=== PATIENT | female | born 1985 | race Caucasian/White ===

== ENCOUNTER 2017-04-20 16:32 | Emergency (ER) | payer OTHER ==
[2017-04-20 16:50] VITALS: BP 100/46; PULSE 65; TEMP 98.3; BMI 22.9
--- NOTE | 2017-04-20 16:50 | PDOC ---
Rapid Medical Evaluation Time Seen by Provider: 04/20/17 16:44 Medical Evaluation: Allergies Allergy/AdvReac Type Severity Reaction Status Date / Time No Known Allergies Allergy Verified 12/10/12 03:59 04/20/17 16:44 I have performed a brief in-person evaluation of this patient. The patient presents with a chief complaint of: Painful rash to lateral R chest s/p insect bite 4 days, no f/c Pertinent physical exam findings:Stable w/ 11 x 6cm erythematous, blanchable plaque that is warm and very painful to touch w/ central pinpoint scabs located over lateral aspect of R chest concerning for possible cellulitis I have ordered the following:cbc/chem The patient will proceed to the ED for further evaluation.
[2017-04-20 17:23] LABS: BASO % 0.4 % (0-2.0); EOS # 0.1 #; EOS % 0.9 % (0-4.5); LYMPH # 1.9; MCH 31.7 pg (25.7-33.7); MCHC 34.2 g/dl (32.0-36.0); MEAN CELL VOLUME 92.9 fl (80-96); MEAN PLT VOLUME 8.7 fl (7.5-11.1); MONO # 0.6 #; NEUT # 3.8 #; PLATELET COUNT 249 K/MM3 (134-434); RDW 12.9 % (11.6-15.6); WHITE BLOOD COUNT 6.4 K/mm3 (4.0-10.0)
[2017-04-20] MEDS ORDERED: ACETAMINOPHEN 500 MG TABLET (FP) ONE (17:33)
[2017-04-20] MEDS ORDERED: diphenhydrAMINE HCL 25 MG CAPSULE (FP) PO ONE ×2 (17:37→17:52)
[2017-04-20] MEDS ORDERED: CEPHALEXIN MONOHYDRATE 500 MG CAPSULE (UD) PO ONE (17:39)
[2017-04-20] MEDS ORDERED: SULFAMETHOXAZOLE/TRIMETHOPRIM 800MG/160MG D.S. TABLET PO ONE (17:39)
[2017-04-20] MEDS ORDERED: SULFAMETHOXAZOLE/TRIMETHOPRIM 800MG/160MG D.S. TABLET ONE (17:52)
[2017-04-20] MEDS ORDERED: CEPHALEXIN MONOHYDRATE 500 MG CAPSULE (UD) ONE (17:52)
[2017-04-20 17:53] LABS: ALBUMIN 4.1 g/dl (3.4-5.0); ANION GAP 6 (8-16); BILIRUBIN,TOTAL 0.3 mg/dL (0.2-1.0); CALCIUM 8.7 mg/dL (8.5-10.1); CO2 27 mmol/L (21-32); CREATININE 0.6 mg/dL (0.55-1.02); GLUCOSE,RANDOM 86 mg/dL (74-106); SGOT/AST 23 U/L (15-37); SGPT/ALT 30 U/L (12-78); TOT PROT 7.9 g/dl (6.4-8.2)
[2017-04-20 17:54] LABS: ALK PHOS 61 U/L (45-117)
--- NOTE | 2017-04-20 18:01 | PDOC ---
History of Present Illness - General Chief Complaint: Bite Stated Complaint: BITE WOUND Time Seen by Provider: 04/20/17 16:44 History Source: Patient Exam Limitations: Language Barrier - History of Present Illness Initial Comments: 04/20/17 17:44 32 yr female with bite to right flank area states "insect" bite 5 days ago now red, itchy and swollen. no fever no chills. no vomiting or diarrhea, denies burning sensation. 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 04/20/17 18:01 Severity: Yes: mild Past History - Past Medical History Allergies/Adverse Reactions: Allergies Allergy/AdvReac Type Severity Reaction Status Date / Time No Known Allergies Allergy Verified 04/20/17 16:44 Home Medications: Ambulatory Orders Cephalexin [Keflex] 250 mg PO QID #28 capsule 04/20/17 Sulfamethoxazole/Trimethoprim [Bactrim Ds Tablet] 1 each PO BID #14 tablet 04/20 Asthma: No Cancer: No Cardiac Disorders: No COPD: No DVT: No Dementia: No Diabetes: No HTN: No Seizures: No Thyroid Disease: No - Immunization History Immunization Up to Date: Yes - Suicide/Smoking/Psychosocial Hx Smoking History: Never smoked Have you smoked in the past 12 months: No Information on smoking cessation initiated: No Hx Alcohol Use: No Drug/Substance Use Hx: No Substance Use Type: None Hx Substance Use Treatment: No *Physical Exam - Vital Signs Last Vital Signs Temp Pulse Resp BP Pulse Ox 98.3 F 65 16 100/46 99 04/20/17 16:45 04/20/17 16:45 04/20/17 16:45 04/20/17 16:45 04/20/17 16:45 - Physical Exam General Appearance: Yes: Nourished, Appropriately Dressed HEENT: positive: EOMI, SARTHAK Neck: positive: Supple Respiratory/Chest: positive: Lungs Clear, Normal Breath Sounds Cardiovascular: positive: Regular Rhythm, Regular Rate Gastrointestinal/Abdominal: positive: Normal Bowel Sounds, Soft Lymphatic: negative: Adenopathy Musculoskeletal: positive: Normal Inspection Extremity: positive: Normal Capillary Refill, Normal Inspection, Normal Range of Motion Integumentary: positive: Normal Color, Dry, Warm, Other (right flank with erythematous area with multiple pustules, scabbed , no fluctuance, no drainage, hardened area ) Neurologic: positive: online marketing coordinator II-XII NML intact, Motor Strength 5/5 ED Treatment Course - LABORATORY CBC & Chemistry Diagram: 04/20/17 16:56 04/20/17 16:56 - ADDITIONAL ORDERS Additional order review: Laboratory Results 04/20/17 16:56 Urine HCG, Qual Negative Medical Decision Making - Medical Decision Making 04/20/17 18:04 painful itchy rash for 5-6 days started small now large and red and inflamed with multiple small bite like pustules will place on oral antibitoics, benadryl for the itching strict 48hr follow up in ER pt understands via the [employer] hatchery helper all dc inst discussed *DC/Admit/Observation/Transfer Diagnosis at time of Disposition: Insect bite Qualifiers: Encounter type: initial encounter Qualified Code(s): W57.XXXA - Bitten or stung by nonvenomous insect and other nonvenomous arthropods, initial encounter Cellulitis Qualifiers: Site of cellulitis: trunk Site of cellulitis of trunk: abdominal wall Qualified Code(s): L03.311 - Cellulitis of abdominal wall - Discharge Dispostion Disposition: HOME Condition at time of disposition: Good - Prescriptions Prescriptions: Cephalexin [Keflex] 250 mg PO QID #28 capsule Sulfamethoxazole/Trimethoprim [Bactrim Ds Tablet] 1 each PO BID #14 tablet - Referrals - Patient Instructions Additional Instructions: return on Tuesday for wound check between 8am and 8pm warm moist compresses every 4hrs for 15 minutes to area of pain while awake for 2 days take the antibitoics as directed also take benadryl for itching and ibuprofen or tylenol for pain regresar el viernes para el control de heridas entre las 8am y las 8pm compresas tibias y hmedas cada 4 horas julián 15 minutos en el larry del dolor mientras est despierto julián 2 alfaro melba los antibiticos belle se indica tambin tome benadryl para picazn e ibuprofeno o tylenol para el dolor - Post Discharge Activity
== END 2017-04-20 18:35 | disposition home or self-care (01) ==
LOC: JERFT 16:32
DX: S30.861A Insect bite (nonvenomous) of abdominal wall, initial encounter (principal); L03.311 Cellulitis of abdominal wall; W57.XXXA Bitten or stung by nonvenomous insect and other nonvenomous arthropods, initial encounter; Y93.89 Activity, other specified; Y92.89 Other specified places as the place of occurrence of the external cause; Y99.8 Other external cause status
CPT/HCPCS: 36415; 80053; 84703; 85025; 99281-25

== ENCOUNTER 2017-04-22 12:51 | Emergency (ER) | payer OTHER ==
[2017-04-22 13:43] VITALS: BP 109/57; PULSE 60; TEMP 98.3; BMI 24.7
--- NOTE | 2017-04-22 14:02 | PDOC ---
History of Present Illness - General Chief Complaint: Rash Stated Complaint: FLANK AND BREAST RASH Time Seen by Provider: 04/22/17 13:48 History Source: Patient Exam Limitations: No Limitations - History of Present Illness Initial Comments: 04/22/17 13:57 32 yr female with c/o painful area to right side flank here for followup. Pt seen in ER 2 days ago treated fro possible insect bite with cellulitus returns with no improvement feels more pain no fever no chills no vomiting. Pt also with small area of redness to right side abdomen. Timing/Duration: reports: getting worse Severity: Yes: mild Location: reports: torso (right side torso) Past History - Past Medical History Allergies/Adverse Reactions: Allergies Allergy/AdvReac Type Severity Reaction Status Date / Time No Known Allergies Allergy Verified 04/22/17 13:40 Home Medications: Ambulatory Orders Acyclovir [Zovirax -] 800 mg PO 5XD #35 tablet 04/22/17 Acyclovir [Zovirax -] 800 mg PO 5XD #35 tablet 04/22/17 Cephalexin Monohydrate [Keflex -] 500 mg PO Q8H 04/22/17 Oxycodone HCl/Acetaminophen [Percocet 5-325 mg Tablet] 1 - 2 tab PO Q6H PRN #14 tab MDD 6 tabs 04/22/17 Oxycodone HCl/Acetaminophen [Percocet 5-325 mg Tablet] 1 - 2 tab PO Q6H PRN #14 tab MDD 8 tabs 04/22/17 Asthma: No Cancer: No Cardiac Disorders: No COPD: No DVT: No Dementia: No Diabetes: No HTN: No Seizures: No Thyroid Disease: No - Immunization History Immunization Up to Date: Yes - Suicide/Smoking/Psychosocial Hx Smoking History: Never smoked Have you smoked in the past 12 months: No Hx Alcohol Use: No Drug/Substance Use Hx: No Substance Use Type: None Hx Substance Use Treatment: No Review of Systems - Review of Systems Able to Perform ROS?: Yes Is the patient limited Japanese proficient: No Constitutional: No: Symptoms Reported HEENTM: No: Symptoms Reported Respiratory: No: Symptoms reported Cardiac (ROS): No: Symptoms Reported ABD/GI: No: Symptoms Reported : No: Symptoms Reported Musculoskeletal: No: Symptoms Reported Integumentary: Yes: Symptoms Reported *Physical Exam - Vital Signs Last Vital Signs Temp Pulse Resp BP Pulse Ox 98.3 F 60 20 109/57 99 04/22/17 13:40 04/22/17 13:40 04/22/17 13:40 04/22/17 13:40 04/22/17 13:40 - Physical Exam General Appearance: Yes: Nourished, Appropriately Dressed HEENT: positive: EOMI, SARTHAK Neck: positive: Supple. negative: Tender, Lymphadenopathy (R), Lymphadenopathy (L) Respiratory/Chest: positive: Lungs Clear, Normal Breath Sounds. negative: Chest Tender Cardiovascular: positive: Regular Rhythm, Regular Rate Musculoskeletal: positive: Normal Inspection Extremity: positive: Normal Capillary Refill, Normal Inspection, Normal Range of Motion Integumentary: positive: Rash (right flank , abdomen , with area of redness, multiple scabbed areas , no drainage) Neurologic: positive: business relationship manager II-XII NML intact, Fully Oriented, Alert, Normal Mood/ Affect, Normal Response, Motor Strength 5/5 Medical Decision Making - Medical Decision Making 04/22/17 14:00 cc: possible shingles, pt with 10/10 pain, there is now an area of redness to the right abdomen that is red and raised pt also with a tender lump to her outer right breast, that pt noted today neg lymphadenopathy will treat with antivirals cool compresses to the area of redness follow up in 2 days for a re-eval 04/22/17 14:02 *DC/Admit/Observation/Transfer Diagnosis at time of Disposition: Herpes - Discharge Dispostion Disposition: HOME Condition at time of disposition: Good - Prescriptions Prescriptions: Acyclovir [Zovirax -] 800 mg PO 5XD #35 tablet Acyclovir [Zovirax -] 800 mg PO 5XD #35 tablet Oxycodone HCl/Acetaminophen [Percocet 5-325 mg Tablet] 1 - 2 tab PO Q6H PRN #14 tab MDD 6 tabs PRN Reason: Pain Oxycodone HCl/Acetaminophen [Percocet 5-325 mg Tablet] 1 - 2 tab PO Q6H PRN #14 tab MDD 8 tabs PRN Reason: Severe Pain - Referrals Referrals: Shamir Henley MD [Staff Physician] - - Patient Instructions Additional Instructions: return in 2 days for follow up take the antivirals as directed take the percocet for pain continue the keflex return sooner if any worse - Post Discharge Activity
--- NOTE | 2017-04-24 16:50 | PDOC ---
Patient Follow-up (Call Back) - Post ED Follow - Up Chief Complaint: Rash Condition at time of discharge: Good Disposition at time of original discharge: HOME Reason for Call Back: Complaint/Condition F/U (courtesy call back to see how pt is doing/follow up) Signs/Symptoms Improved: Yes - Disposition Additional Instructions/Notes: spoke with pt states she is much better, the rash has improved no fever, pain is less.
== END 2017-04-22 14:08 | disposition home or self-care (01) ==
LOC: JERFT 12:51
DX: B00.9 Herpesviral infection, unspecified (principal)
CPT/HCPCS: 99281-25

== ENCOUNTER 2018-03-25 22:50 | Emergency (ER) | payer OTHER ==
[2018-03-25 23:25] VITALS: TEMP 97.7; BMI 23.4
--- NOTE | 2018-03-26 00:07 | PDOC ---
History of Present Illness - General History Source: Patient Exam Limitations: No Limitations - History of Present Illness Initial Comments: 03/26/18 00:12 The patient is a 33 year old female with no significant PMH who presents to the emergency department with drainage from the right big toe. Patient states that 6 days ago, she was picking at an ingrown toenail at the right big toe. Patient noticed pus draining from her right big toe 4 days ago. Patient is draining clear fluid here in the ER. The patient numbness, tingling or loss of sensation to the area. Allergies: NKA Past surgical history: None reported. Social history: No reported alcohol, drug or cigarette use PCP: None <Caroline Kirk - Last Filed: 03/26/18 00:12> <Keya Darby - Last Filed: 03/26/18 01:14> - General Chief Complaint: Wound Stated Complaint: INFECTION ON RT FOOT Time Seen by Provider: 03/26/18 00:07 Past History <Caroline Kirk - Last Filed: 03/26/18 00:12> - Past Medical History Asthma: No Cancer: No Cardiac Disorders: No COPD: No DVT: No Dementia: No Diabetes: No HTN: No Seizures: No Thyroid Disease: No - Surgical History Abdominal Surgery: No Appendectomy: No Cardiac Surgery: No Cholecystectomy: No Gastric Stapling: No - Immunization History Immunization Up to Date: Yes - Suicide/Smoking/Psychosocial Hx Smoking History: Never smoked Have you smoked in the past 12 months: No Hx Alcohol Use: No Drug/Substance Use Hx: No Substance Use Type: None Hx Substance Use Treatment: No <Keya Darby - Last Filed: 03/26/18 01:14> - Past Medical History Allergies/Adverse Reactions: Allergies Allergy/AdvReac Type Severity Reaction Status Date / Time No Known Allergies Allergy Verified 04/22/17 13:40 Home Medications: Ambulatory Orders Acyclovir [Zovirax -] 800 mg PO 5XD #35 tablet 04/22/17 Acyclovir [Zovirax -] 800 mg PO 5XD #35 tablet 04/22/17 Cephalexin Monohydrate [Keflex -] 500 mg PO Q8H 04/22/17 Oxycodone HCl/Acetaminophen [Percocet 5-325 mg Tablet] 1 - 2 tab PO Q6H PRN #14 tab MDD 6 tabs 04/22/17 Oxycodone HCl/Acetaminophen [Percocet 5-325 mg Tablet] 1 - 2 tab PO Q6H PRN #14 tab MDD 8 tabs 04/22/17 Cephalexin [Keflex] 250 mg PO QID #28 capsule 03/26/18 *Physical Exam - Vital Signs Last Vital Signs Temp Pulse Resp BP Pulse Ox 97.7 F 61 20 103/55 L 99 03/25/18 23:22 03/25/18 23:22 03/25/18 23:22 03/25/18 23:22 03/25/18 23:22 <Caroline Kirk - Last Filed: 03/26/18 00:12> - Vital Signs Last Vital Signs Temp Pulse Resp BP Pulse Ox 97.7 F 61 20 103/55 L 99 03/25/18 23:22 03/25/18 23:22 03/25/18 23:22 03/25/18 23:22 03/25/18 23:22 <Keya Darby - Last Filed: 03/26/18 01:14> Moderate Sedation - Procedure Monitoring Vital Signs: Procedure Monitoring Vital Signs Temperature 97.7 F 03/25/18 23:22 Pulse Rate 61 03/25/18 23:22 Respiratory Rate 20 03/25/18 23:22 Blood Pressure 103/55 L 03/25/18 23:22 O2 Sat by Pulse Oximetry (%) 99 03/25/18 23:22 <Caroline Kirk - Last Filed: 03/26/18 00:12> - Procedure Monitoring Vital Signs: Procedure Monitoring Vital Signs Temperature 97.7 F 03/25/18 23:22 Pulse Rate 61 03/25/18 23:22 Respiratory Rate 20 03/25/18 23:22 Blood Pressure 103/55 L 03/25/18 23:22 O2 Sat by Pulse Oximetry (%) 99 03/25/18 23:22 <Keya Darby - Last Filed: 03/26/18 01:14> ED Treatment Course - LABORATORY CBC & Chemistry Diagram: 03/26/18 00:19 03/26/18 00:19 <Keya Darby - Last Filed: 03/26/18 01:14> *DC/Admit/Observation/Transfer <Caroline Kirk - Last Filed: 03/26/18 00:12> - Discharge Dispostion Decision to Admit order: No <Keya Darby - Last Filed: 03/26/18 01:14> Diagnosis at time of Disposition: Cellulitis of toe of right foot - Discharge Dispostion Disposition: HOME Condition at time of disposition: Stable - Prescriptions Prescriptions: Cephalexin [Keflex] 250 mg PO QID #28 capsule - Patient Instructions Printed Discharge Instructions: DI for Cellulitis -- Adult
[2018-03-26] MEDS ORDERED: CEFAZOLIN 1 GM in DEXTROSE 5%-WATER - 50 ML IVPB ONE (00:20)
[2018-03-26] MEDS ORDERED: ACETAMINOPHEN 325 MG TABLET (FP) PO ONE (00:21)
[2018-03-26 00:32] LABS: EOS % 1.4 % (0-4.5); HEMATOCRIT 34.7 % (32.4-45.2); HEMOGLOBIN 12.2 GM/dL (10.7-15.3); LYMPH % 38.6 % (8-40); MCH 32.4 pg (25.7-33.7); MCHC 35.2 g/dl (32.0-36.0); MEAN CELL VOLUME 92.1 fl (80-96); MEAN PLT VOLUME 8.2 fl (7.5-11.1); MONO % 9.5 % (3.8-10.2); NEUT % 49.5 % (42.8-82.8); PLATELET COUNT 275 K/MM3 (134-434); RBC 3.77 M/mm3 (3.60-5.2); RDW 13.2 % (11.6-15.6); WHITE BLOOD COUNT 7.1 K/mm3 (4.0-10.0)
[2018-03-26] MEDS ORDERED: ACETAMINOPHEN 325 MG TABLET (FP) ONE (01:00)
[2018-03-26] MEDS ORDERED: CEFAZOLIN 1 GM/D5W 1 GM/50 ML BAG ONE (01:01)
[2018-03-26 01:13] LABS: ALBUMIN 3.8 g/dl (3.4-5.0); ALK PHOS 84 U/L (45-117); ANION GAP 9 MMOL/L (8-16); BILIRUBIN,TOTAL < 0.1 mg/dL (0.2-1); BLOOD UREA NITROGEN 20 mg/dL (7-18); CALCIUM 8.4 mg/dL (8.5-10.1); CHLORIDE 107 mmol/L (98-107); CO2 24 mmol/L (21-32); CREATININE 0.6 mg/dL (0.55-1.3); GLUCOSE,RANDOM 107 mg/dL (74-106); POTASSIUM 4.4 mmol/L (3.5-5.1); SGOT/AST 25 U/L (15-37); SGPT/ALT 27 U/L (13-61); SODIUM 140 mmol/L (136-145); TOT PROT 7.6 g/dl (6.4-8.2)
[2018-03-26 02:33] VITALS: BP 110/62; PULSE 51
== END 2018-03-26 01:45 | disposition home or self-care (01) ==
LOC: JER 22:50
DX: L03.031 Cellulitis of right toe (principal)
CPT/HCPCS: 36415; 80053; 85025; 87070; 87186; 87205; 99281-25

== ENCOUNTER 2019-05-28 08:59 | Emergency (ER) | payer OTHER ==
[2019-05-28 09:05] VITALS: BP 115/52; PULSE 60; TEMP 98.4; BMI 23.6
[2019-05-28] MEDS ORDERED: ACETAMINOPHEN 325 MG TABLET (FP) PO ONE (10:32)
[2019-05-28] MEDS ORDERED: DEXAMETHASONE LIQUID 0.5 MG/5 ML PO ONE (10:32)
[2019-05-28] MEDS ORDERED: ACETAMINOPHEN 325 MG TABLET (FP) ONE (10:34)
[2019-05-28] MEDS ORDERED: DEXAMETHASONE SOD PHOSPHATE 10 MG/1 ML VIAL ONE (10:34)
--- NOTE | 2019-05-28 10:35 | PDOC ---
History of Present Illness - General Chief Complaint: Cold Symptoms Stated Complaint: FEVER/BODYACHES/SORE THROAT Time Seen by Provider: 05/28/19 09:08 History Source: Patient Exam Limitations: No Limitations Past History - Travel Traveled outside of the country in the last 30 days: No Close contact w/someone who was outside of country & ill: No - Past Medical History Allergies/Adverse Reactions: Allergies Allergy/AdvReac Type Severity Reaction Status Date / Time No Known Allergies Allergy Verified 05/28/19 09:05 Home Medications: Ambulatory Orders Cephalexin Monohydrate [Keflex -] 500 mg PO Q8H 04/22/17 Amoxicillin - [Amoxicillin 500mg Capsule -] 500 mg PO BID #14 capsule 05/28/19 Ibuprofen 600 mg PO Q6H #30 tablet 05/28/19 Asthma: No Cancer: No Cardiac Disorders: No COPD: No DVT: No Dementia: No Diabetes: No HTN: No Seizures: No Thyroid Disease: No - Surgical History Abdominal Surgery: No Appendectomy: No Cardiac Surgery: No Cholecystectomy: No Gastric Stapling: No - Immunization History Immunization Up to Date: Yes - Psycho Social/Smoking Cessation Hx Smoking History: Never smoked Have you smoked in the past 12 months: No Information on smoking cessation initiated: No Hx Alcohol Use: No Drug/Substance Use Hx: No Substance Use Type: None Hx Substance Use Treatment: No Review of Systems - Review of Systems Able to Perform ROS?: Yes Comments:: 05/28/19 10:31 CONSTITUTIONAL: Present: fevers, chills Absent: diaphoresis, generalized weakness, malaise, loss of appetite HEENT: Present: sore throat, nasal congestion Absent: rhinorrhea, nasal congestion, throat pain, throat swelling, difficulty swallowing, mouth swelling, ear pain, eye pain, visual Changes CARDIOVASCULAR: Absent: chest pain, loss of consciousness, palpitations, irregular heart rate, peripheral edema RESPIRATORY: Absent: cough, shortness of breath, dyspnea with exertion, orthopnea, wheezing, stridor, hemoptysis GASTROINTESTINAL: Absent: abdominal pain, abdominal distension, nausea, vomiting, diarrhea, constipation, melena, hematochezia GENITOURINARY: Absent: dysuria, frequency, urgency, hesitancy, hematuria, flank pain, genital pain MUSCULOSKELETAL: Absent: myalgia, arthralgia, joint swelling SKIN: Absent: rash, itching, pallor NEUROLOGIC: Absent: headache, focal weakness or paresthesias, dizziness, unsteady gait, seizure, mental status changes, bladder or bowel incontinence PSYCHIATRIC: Absent: anxiety, depression, suicidal or homicidal ideation, hallucinations. Is the patient limited Icelandic proficient: No *Physical Exam - Vital Signs Last Vital Signs Temp Pulse Resp BP Pulse Ox 98.4 F 60 17 115/52 L 99 05/28/19 09:02 05/28/19 09:02 05/28/19 09:02 05/28/19 09:02 05/28/19 09:02 - Physical Exam 05/28/19 10:32 GENERAL: The patient is awake, alert, and fully oriented, in no acute distress. HEAD: Normal with no signs of trauma. EYES: Pupils equal, round and reactive to light, extraocular movements intact, sclera anicteric, conjunctiva clear. HEENT: No nasal congestion or rhinorrhea. No sinus Tenderness. Mucous membranes are moist. Vesicular lesion noted to tip of tongue. (+) tonsillar erythema, exudate and edema. Uvula is midline. No TM bulging, dullness or erythema. Cervical LAD noted. EXTREMITIES: Normal range of motion, no edema. NEUROLOGICAL: Normal speech, normal gait. PSYCH: Normal mood, normal affect. SKIN: Warm, Dry, normal turgor, no rashes or lesions noted. Medical Decision Making - Medical Decision Making 05/28/19 10:33 The patient is a 34-year-old female with no past medical history who presents to the ER today for 3 days of sore throat, fevers and difficulty swallowing. She is able to swallow her own secretions. She states that she has tried Motrin at home for the pain with little relief of her symptoms. She also admits to associated body aches. She states she has a dry cough without phlegm. She does note that she does have nasal congestion. Denies vomiting, abdominal pain, ear pain. A/P: Pharyngitis On exam patient has 3+ tonsils, which are erythematous with exudate. Cervical adenopathy also noted. Given exam findings we will treat empirically for strep throat. Discharge home with supportive relief and a prescription for amoxicillin. Patient to follow-up with her primary care doctor. I discussed the physical exam findings, ancillary test results and final diagnoses with the patient. I answered all of the patient's questions. The patient was satisfied with the care received and felt comfortable with the discharge plan and treatment plan. The Patient agrees to follow up with the primary care physician/specialist within 24-72 hours. Return precautions were given. Discharge - Discharge Information Problems reviewed: Yes Clinical Impression/Diagnosis: Pharyngitis Qualifiers: Pharyngitis/tonsillitis etiology: unspecified etiology Qualified Code(s): J02.9 - Acute pharyngitis, unspecified Condition: Stable Disposition: HOME - Admission No - Follow up/Referral Referrals: Dheeraj Miller MD [Staff Physician] - - Patient Discharge Instructions Patient Printed Discharge Instructions: DI for Strep Throat Additional Instructions: You have strep throat. This is a bacterial infection. Please take the amoxicillin 500 mg twice a day for one week. Please finish the prescription even if you feel better. You may take Motrin 800 mg every 8 hours as needed for pain or fever. Warm water gargles and cough drops and just may also help her symptoms. Please throw way your toothbrush 3 days into treatment to prevent reinfection. Please follow up with your primary care doctor next week. Return to emergency department if you have worsening pain, difficulty swallowing, changes in your voice, lightheadedness, dizziness, or any changes in your symptoms. Tienes estreptococos. Esta es dalia infeccin bacteriana. Por favor, tome la amoxicilina 500 mg dos veces al da julián dalia semana. Por favor, termine la receta incluso si se siente mejor. Puede melba Motrin 800 mg cada 8 horas segn sea necesario para el dolor o la fiebre. El agua tibia hace grgaras y gotas para la tos y tambin puede ayudar a carolina sntomas. Por favor, tire hawkins cepillo de dientes 3 alfaro en el tratamiento para evitar la reinfeccin. Por favor, sarah un seguimiento con hawkins mdico de atencin primaria la prxima semana. Regrese al servicio de urgencias si tiene dolor que empeora, dificultad para tragar, cambios en la voz, mareos, mareos o cualquier cambio en los sntomas. Print Language: SERBIAN - Post Discharge Activity Work/Back to School Note: Back to Work
== END 2019-05-28 10:48 | disposition home or self-care (01) ==
LOC: JERFT 08:59
DX: J02.9 Acute pharyngitis, unspecified (principal)
CPT/HCPCS: 99282-25

== ENCOUNTER 2022-04-03 10:55 | Emergency (ER) | payer OTHER ==
[2022-04-03 11:19] VITALS: BP 107/55; PULSE 67; RESP 18; TEMP 97.8; BMI 24.2
[2022-04-03 13:08] LABS: INR 1.21 (0.83-1.09); PROTHROMBIN TIME (PATIENT) 13.9 SEC (9.7-13.0)
[2022-04-03 13:12] LABS: BASO % 0.9 % (0-2.0); EOS % 1.1 % (0-4.5); HEMATOCRIT 36.6 % (32.4-45.2); HEMOGLOBIN 12.3 GM/dL (10.7-15.3); MCH 31.2 pg (25.7-33.7); MCHC 33.8 g/dl (32.0-36.0); MEAN CELL VOLUME 92.5 fl (80-96); MEAN PLT VOLUME 8.3 fl (7.5-11.1); MONO % 17.8 % (3.8-10.2); NEUT % 46.2 % (42.8-82.8); PLATELET COUNT 273 10^3/uL (134-434); RBC 3.95 M/mm3 (3.60-5.2); RDW 13.6 % (11.6-15.6); WHITE BLOOD COUNT 3.9 K/mm3 (4.0-10.0)
[2022-04-03 13:30] LABS: ALBUMIN 3.7 g/dl (3.4-5.0); BLOOD UREA NITROGEN 9.1 mg/dL (7-18); CALCIUM 8.6 mg/dL (8.5-10.1)
[2022-04-03 13:33] LABS: CREATININE 0.5 mg/dL (0.55-1.3)
[2022-04-03 13:35] LABS: BILIRUBIN,TOTAL 0.3 mg/dL (0.2-1); TOT PROT 8.1 g/dl (6.4-8.2)
[2022-04-03 14:41] LABS: EPI CELLS 14 /uL (0-25.1); HYALINE CASTS 1 /uL (0-3.1); PH,URINE 5.5 (5.0-8.0); URINE APPEARANCE CLEAR; URINE BACTERIA 130 /uL (0-1359); URINE BILIRUBIN NEGATIVE (NEGATIVE); URINE COLOR YELLOW; URINE GLUCOSE (UA) NEGATIVE (NEGATIVE); URINE KETONE NEGATIVE (NEGATIVE); URINE LEUK ESTERASE NEGATIVE (NEGATIVE); URINE NITRITE NEGATIVE (NEGATIVE); URINE PROTEIN TRACE (NEGATIVE); URINE RBC 47 /uL (0-23.9); URINE UROBILINOGEN 0.2 mg/dL (0.2-1.0); URINE WBC 8 /uL (0-25.8)
== END 2022-04-03 15:23 | disposition home or self-care (01) ==
LOC: JER 10:55
DX: O03.9 Complete or unspecified spontaneous abortion without complication (principal)
CPT/HCPCS: 36415; 76817-TC; 80053; 81003; 84702; 85025; 85610; 86850; 86900; 86901; 87086; 99284-25

== ENCOUNTER 2022-04-06 07:40 | Emergency (ER) | payer OTHER ==
[2022-04-06 07:54] VITALS: BP 111/70; PULSE 60; RESP 18; TEMP 98.6; BMI 25.4
== END 2022-04-06 11:42 | disposition home or self-care (01) ==
LOC: JER 07:40 → JERFT 07:40
DX: O20.9 Hemorrhage in early pregnancy, unspecified (principal); Z3A.00 Weeks of gestation of pregnancy not specified
CPT/HCPCS: 36415; 84702; 99283-25

== ENCOUNTER 2023-04-21 19:23 | Emergency (ER) | payer OTHER ==
[2023-04-21 19:31] VITALS: BP 118/68; PULSE 65; RESP 18; TEMP 98.2; BMI 27.7
[2023-04-21] MEDS ORDERED: ACETAMINOPHEN 500 MG TABLET (FP) PO ONE (21:24)
[2023-04-21] MEDS ORDERED: ACETAMINOPHEN 500 MG TABLET (FP) ONE (21:38)
== END 2023-04-21 22:20 | disposition home or self-care (01) ==
LOC: JERFT 19:23
DX: M25.531 Pain in right wrist (principal); M25.532 Pain in left wrist; G89.29 Other chronic pain
CPT/HCPCS: 73130-TC-LT-FY; 73130-TC-RT-FY; 99283-25